=== PATIENT | male | born 1975 | race Caucasian/White ===

== ENCOUNTER 2018-09-24 11:44 | Day surgery (SDC) | payer OTHER, MEDICARE ==
[~2018-09-24] VITALS: Ht 188 cm; Wt 113.7 kg
[2018-09-24 12:16] VITALS: BP 109/74
[2018-09-24] MEDS ORDERED: LACTATED RINGERS 1,000 ML IV SCH (12:22)
[2018-09-24] MEDS ORDERED: LISI-170 PO (12:27)
[2018-09-24] MEDS ORDERED: ALPR0.5T6 PO (12:27)
[2018-09-24] MEDS ORDERED: ARIP5TAB13 PO (12:27)
[2018-09-24] MEDS ORDERED: CLON1TAB11 PO (12:27)
[2018-09-24] MEDS ORDERED: DILT180C72 PO (12:27)
[2018-09-24] MEDS ORDERED: ATEN50TA41 PO (12:27)
[2018-09-24] MEDS ORDERED: FLUO40CA9 PO (12:27)
[2018-09-24] MEDS ORDERED: OMEP-110 PO (12:27)
[2018-09-24] MEDS ORDERED: IBUP-1223 PO (12:27)
[2018-09-24] MEDS ORDERED: GABA300C10 PO (12:27)
[2018-09-24] MEDS ORDERED: ACETAMINOPHEN 500 MG TABLET PO ONE (12:30)
[2018-09-24] MEDS ORDERED: LIDOCAINE-MPF 1%, 2ML INFIL ONE (12:30)
[2018-09-24 13:02] LABS: ANION GAP 9 mmol/L (5-15); CALCIUM 9.1 mg/dL (8.5-10.1); CHLORIDE 108 mmol/L (98-107)
[2018-09-24 13:10] LABS: ALANINE AMINOTRANSFERASE 22 U/L (12-78); ALBUMIN 3.9 g/dL (3.4-5.0); ALKALINE PHOSPHATASE 89 U/L (45-117); BILIRUBIN,TOTAL 0.5 mg/dL (0.2-1.0); CREATININE 0.86 mg/dL (0.7-1.3); TOTAL PROTEIN 8.1 g/dL (6.4-8.2)
[2018-09-24] MEDS ORDERED: FENTANYL PF 100 MCG/2ML ONE (13:10)
[2018-09-24] MEDS ORDERED: MIDAZOLAM 1 MG/ML, 2ML ONE (13:13)
[2018-09-24] MEDS ORDERED: BUPIVACAINE/PF-EPI 0.25% 1:200K ONE (13:35)
[2018-09-24] MEDS ORDERED: KETOROLAC 30 MG/1 ML ONE (13:41)
[2018-09-24] MEDS ORDERED: DEXAMETHASONE 4 MG/ML, 1ML ONE (14:04)
[2018-09-24] MEDS ORDERED: ONDANSETRON 2MG/ML, 2ML ONE (14:04)
[2018-09-24] MEDS ORDERED: PROPOFOL 10 MG/ML, 20ML ONE (14:04)
[2018-09-24] MEDS ORDERED: CEFAZOLIN 1,000 MG ONE (14:04)
[2018-09-24] MEDS ORDERED: BUPIVACAINE 0.25% INFIL ONE (14:05)
[2018-09-24] MEDS ORDERED: OMNIPAQUE 350 MG/ML, 50 ML BOTTLE ONE (14:09)
[2018-09-24] MEDS ORDERED: OMNIPAQUE 350 MG/ML, 50 ML BOTTLE IV ONE (14:10)
[2018-09-24] MEDS ORDERED: hydrALAzine 20 MG/ML, 1ML IV PRN (14:30)
[2018-09-24] MEDS ORDERED: LABETALOL 5MG/ML, 20ML IV PRN (14:30)
[2018-09-24] MEDS ORDERED: DIPHENHYDRAMINE 50 MG/ML, 1ML IVPush PRN (14:30)
[2018-09-24] MEDS ORDERED: PROCHLORPERAZINE 5 MG/ML, 2ML IV PRN (14:30)
[2018-09-24] MEDS ORDERED: OXYcodone 5 MG/5 ML ORAL.SOL UDC PO PRN (14:30)
[2018-09-24] MEDS ORDERED: MEPERIDINE/PF 25MG/0.5ML IVPush PRN (14:30)
[2018-09-24] MEDS ORDERED: HYDROmorphone 1 MG/ML, 1ML IV PRN (14:30)
[2018-09-24] MEDS ORDERED: FENTANYL PF 100 MCG/2ML IV PRN (14:30)
== END 2018-09-24 16:25 | disposition home or self-care (01) ==
LOC: OUT 11:44
PROVIDERS: ATTEND Urology
DX: Z30.2 Encounter for sterilization (principal); N35.919 Unspecified urethral stricture, male, unspecified site; I10 Essential (primary) hypertension; K21.9 Gastro-esophageal reflux disease without esophagitis; F41.9 Anxiety disorder, unspecified; F32.9 Major depressive disorder, single episode, unspecified
CPT/HCPCS: 36415; 51610; 55250; 74450; 80053; J1100; J1885; J2250; J2405; J2704; J3010; J3490; J7120; Q9967; J0690

== ENCOUNTER → 2021-04-13 | Outpatient (CLI) | payer OTHER, MEDICARE ==
[~2021-04-13] MED LIST: ALPR-585 PO; ALPR0.5T93 PO; ARIP10TA33 PO; ARIP5TAB13 PO; ATEN50TA41 PO; CLON1TAB11 PO; DILT180C72 PO; FLUO40CA9 PO; GABA300C10 PO; IBUP-1223 PO; LISI-170 PO; OMEP-110 PO
[2021-04-13 12:43] LABS: BASOPHILS % (AUTO) 1 % (0-1); EOSINOPHILS % (AUTO) 2 % (1-7); LYMPHOCYTES % (AUTO) 21 % (22-44); MEAN CORPUSCULAR HEMOGLOBIN 32.7 pg (27.5-34.5); MEAN CORPUSCULAR HGB CONC 34.2 g/dL (33.2-36.2); MEAN PLATELET VOLUME 8.9 fL (7.4-10.4); MONOCYTES % (AUTO) 11 % (2-9); NEUTROPHILS % (AUTO) 67 % (42-75); PLATELET COUNT 219 x10^3/uL (130-400); RED BLOOD COUNT 4.95 x10^6/uL (4.38-5.82); RED CELL DISTRIBUTION WIDTH 12.8 % (9.4-14.8)
[2021-04-13 12:53] LABS: ALBUMIN 4.1 g/dL (3.4-5.0); ANION GAP 7 mmol/L (5-15); CALCIUM 8.8 mg/dL (8.5-10.1); CHLORIDE 102 mmol/L (98-107)
[2021-04-13 12:57] LABS: ALANINE AMINOTRANSFERASE 38 U/L (12-78); ALKALINE PHOSPHATASE 86 U/L (45-117); BILIRUBIN,TOTAL 0.6 mg/dL (0.2-1.0); CREATININE 0.89 mg/dL (0.7-1.3); TOTAL PROTEIN 8.3 g/dL (6.4-8.2)
[2021-04-13 13:19] LABS: MD NO
== END | disposition home or self-care (01) ==
LOC: STAR 11:20
PROVIDERS: ATTEND Urology
DX: Z01.812 Encounter for preprocedural laboratory examination (principal); N35.919 Unspecified urethral stricture, male, unspecified site; Z20.822 Contact with and (suspected) exposure to COVID-19
CPT/HCPCS: 36415; 80053; 85025; 87086; U0003; U0005

== ENCOUNTER 2021-04-18 10:55 | Day surgery (SDC) | payer OTHER, MEDICARE ==
[~2021-04-18] VITALS: Ht 188 cm; Wt 112.3 kg
[2021-04-18] MEDS ORDERED: LACTATED RINGERS 1,000 ML IV SCH (11:30)
[2021-04-18] MEDS ORDERED: CHLORHEXIDINE 15 ML UDC PO ONE (11:30)
[2021-04-18 11:33] VITALS: BP 166/80
[2021-04-18] MEDS ORDERED: NEOSTIGMINE 1 MG/ML, 10ML ONE (15:00)
[2021-04-18] MEDS ORDERED: PROPOFOL 10 MG/ML, 20ML ONE (15:00)
[2021-04-18] MEDS ORDERED: GLYCOPYRROLATE 0.4 MG/2 ML, 2ML ONE (15:00)
[2021-04-18] MEDS ORDERED: BACITRACIN 50,000 UNIT ONE (16:02)
[2021-04-18] MEDS ORDERED: BACITRACIN OINT 500U/GM, 15 GM ONE (16:02)
[2021-04-18] MEDS ORDERED: LIDOCAINE/PF 1%-EPI 1:200K, 30 ML ONE (16:02)
[2021-04-18] MEDS ORDERED: BUPIVACAINE/PF 0.25% ONE (16:02)
[2021-04-18] MEDS ORDERED: VANCOMYCIN 1,000 MG ONE (16:02)
[2021-04-18] MEDS ORDERED: GENTAMICIN 80 MG/2 ML ONE (16:03)
[2021-04-18] MEDS ORDERED: AMPICILLIN 2 GM ONE (16:03)
[2021-04-18] MEDS ORDERED: FENTANYL PF 250 MCG/5ML ONE ×3 (16:18→17:45)
[2021-04-18] MEDS ORDERED: MIDAZOLAM 1 MG/ML, 2ML ONE (16:18)
[2021-04-18] MEDS ORDERED: ACETAMINOPHEN 325 MG TABLET PO PRN (16:30)
[2021-04-18] MEDS ORDERED: OXYcodone 5 MG/5 ML ORAL.SOL UDC PO PRN (16:30)
[2021-04-18] MEDS ORDERED: MEPERIDINE/PF 25MG/0.5ML IVPush PRN (16:30)
[2021-04-18] MEDS ORDERED: LABETALOL 5MG/ML, 20ML IV PRN (16:30)
[2021-04-18] MEDS ORDERED: ONDANSETRON 2MG/ML, 2ML IVPush PRN (16:30)
[2021-04-18] MEDS ORDERED: morphine SULFATE 10 MG/ML, 1ML IVPush PRN (16:30)
[2021-04-18] MEDS ORDERED: FENTANYL PF 100 MCG/2ML IV PRN (16:30)
[2021-04-18] MEDS ORDERED: hydrALAzine 20 MG/ML, 1ML IV PRN (16:30)
[2021-04-18] MEDS ORDERED: HYDROmorphone 1 MG/ML, 1ML INJ IVPush PRN (16:30)
[2021-04-18] MEDS ORDERED: ROCURONIUM 10MG/ML,5ML ONE (16:47)
[2021-04-18] MEDS ORDERED: FENTANYL PF 100 MCG/2ML ONE (20:16)
[2021-04-18] MEDS ORDERED: MEPERIDINE/PF 25MG/ML,1ML ONE (20:41)
[2021-04-18] MEDS ORDERED: OXYcodone 5 MG/5 ML ORAL.SOL UDC ONE (21:05)
[2021-04-19] MEDS ORDERED: GLYCOPYRROLATE 0.4 MG/2 ML, 2ML ONE (15:38)
[2021-04-19] MEDS ORDERED: NEOSTIGMINE 1 MG/ML, 10ML ONE (15:38)
[2021-04-19] MEDS ORDERED: PROPOFOL 10 MG/ML, 20ML ONE (15:38)
== END 2021-04-18 22:42 | disposition home or self-care (01) ==
LOC: OUT 10:55
PROVIDERS: ATTEND Urology
DX: N35.919 Unspecified urethral stricture, male, unspecified site (principal); N52.9 Male erectile dysfunction, unspecified; I10 Essential (primary) hypertension; Z79.1 Long term (current) use of non-steroidal anti-inflammatories (NSAID); Z79.899 Other long term (current) drug therapy; Z87.891 Personal history of nicotine dependence
CPT/HCPCS: 40818; 53400; C1760; J0290; J1580; J2175; J2250; J2704; J2710; J3010; J7120; J3370